=== PATIENT | female | born 1965 | race Caucasian/White ===

== ENCOUNTER 2017-06-06 22:53 | Emergency (ER) | payer SELFPAY ==
--- NOTE | 2017-06-06 23:33 | ER Document Report ---
ED General - General Chief Complaint: Leg Pain Stated Complaint: LEFT LEG PAIN Time Seen by Provider: 06/06/17 23:31 Notes: The patient is a 52-year-old female, past medical history chronic left leg sciatica, asthma, presents with 2 months of intermittent tingling and pain down the back of her left leg. She has had the symptoms over the past 15 years. She took ibuprofen without much relief her symptoms earlier today and said the pain was worsening over the past 3 days. She denies change in bowel or bladder , injury, numbness, difficulty walking, fevers, rash or saddle anesthesia. TRAVEL OUTSIDE OF THE [place] IN LAST 30 DAYS: No - Related Data Allergies/Adverse Reactions: amoxicillin [Amoxicillin] Adverse Reaction (Intermediate, Verified 12/21/11 09: 55) Nausea erythromycin base [Erythromycin Base] Adverse Reaction (Intermediate, Verified 12/21/11 09:55) Nausea Penicillins Adverse Reaction (Intermediate, Verified 12/21/11 09:55) Nausea Past Medical History - General Information source: Patient - Social History Smoking Status: Unknown if Ever Smoked Family History: Reviewed & Not Pertinent Pulmonary Medical History: Reports: Hx Asthma Past Surgical History: Reports: Hx Cholecystectomy, Hx Tonsillectomy - Immunizations Hx Diphtheria, Pertussis, Tetanus Vaccination: Yes Review of Systems - Review of Systems Notes: REVIEW OF SYSTEMS: CONSTITUTIONAL: -fevers, -chills EENT: -eye pain, -difficulty swallowing, -nasal congestion CARDIOVASCULAR:-chest pain, -syncope. RESPIRATORY: -cough, -SOB GASTROINTESTINAL: -abdominal pain, -nausea, -vomiting, -diarrhea GENITOURINARY: -dysuria, -hematuria MUSCULOSKELETAL: -back pain, -neck pain SKIN: -rash or skin lesions. HEMATOLOGIC: -easy bruising or bleeding. LYMPHATIC: -swollen, enlarged glands. NEUROLOGICAL: -altered mental status or loss of consciousness, -headache, + tingling/pain down left leg PSYCHIATRIC: -anxiety, -depression. ALL OTHER SYSTEMS REVIEWED AND NEGATIVE. Physical Exam - Vital signs Vitals: Temp Pulse Resp BP Pulse Ox 98 F 95 16 152/90 H 97 06/06/17 23:26 06/06/17 23:26 06/06/17 23:26 06/06/17 23:26 06/06/17 23:26 - Notes Notes: PHYSICAL EXAMINATION: GENERAL: Well-appearing, well-nourished and in no acute distress. HEAD: Atraumatic, normocephalic. EYES: Pupils equal round and reactive to light, extraocular movements intact, sclera anicteric, conjunctiva are normal. ENT: nares patent, oropharynx clear without exudates. Moist mucous membranes. NECK: Normal range of motion, supple without lymphadenopathy LUNGS: Breath sounds clear to auscultation bilaterally and equal. No wheezes rales or rhonchi. HEART: Regular rate and rhythm without murmurs ABDOMEN: Soft, nontender, normoactive bowel sounds. No guarding, no rebound. No masses appreciated. EXTREMITIES: Normal range of motion, no pitting or edema. No cyanosis. Strong distal pulses. BACK: No midline tenderness. NEUROLOGICAL: Cranial nerves grossly intact. Normal speech, normal gait. Normal sensory and motor exams. PSYCH: Normal mood, normal affect. SKIN: Warm, Dry, normal turgor, no rashes or lesions noted. Course - Re-evaluation Re-evalutation: Patient symptoms are ongoing for the past 15 years, worsening over the past 2 months. She has no red flag signs for low back pain and her symptoms are consistent with sciatica. Provided her with a shot of Decadron and instructions to continue anti-inflammatories with follow-up at pain management. She is strong distal pulses and her symptoms do not appear to be consistent with DVT or PVD/PAD at this time. - Vital Signs Vital signs: Temp Pulse Resp BP Pulse Ox 98 F 95 16 152/90 H 97 06/06/17 23:26 06/06/17 23:26 06/06/17 23:26 06/06/17 23:26 06/06/17 23:26 Discharge - Discharge Clinical Impression: Sciatica Qualifiers: Laterality: left Qualified Code(s): M54.32 - Sciatica, left side Condition: Stable Disposition: HOME, SELF-CARE Additional Instructions: Sciatica Your symptoms suggest "sciatica." The pain of sciatica typically radiates down the leg. Numbness in the foot or calf may also occur. Sciatica is caused by irritation of the sciatic nerve or its branches. The irritation can be due to a herniated disk in the spine, swelling and inflammation in the muscles surrounding the sciatic nerve, or direct injury of the nerve itself. Most cases of sciatica will resolve with medical treatment. Bed rest is usually recommended initially. Surgery is only necessary when the condition will not improve with rest and antiinflammatory medication. Muscle relaxers are often given if muscle soreness is present. Re-examination is necessary if you develop increasing numbness, localized weakness in the foot or ankle, or if the pain does not respond to rest. Forms: Elevated Blood Pressure Referrals: [facility] [Provider Group] - Follow up as needed
[2017-06-06] MEDS ORDERED: DEXAMETHASONE SOD PHOS INJ 10 MG/1 ML VIAL IM ONE (23:38)
[2017-06-07 01:09] VITALS: BP 123/71
== END 2017-06-07 01:08 | disposition home or self-care (01) ==
LOC: ER 22:53
DX: M54.32 Sciatica, left side (principal); M79.605 Pain in left leg; G89.29 Other chronic pain; R20.0 Anesthesia of skin
CPT/HCPCS: 99283; 96372; J1100

== ENCOUNTER 2017-09-13 15:28 | Emergency (ER) | payer SELFPAY ==
[2017-09-13] MEDS ORDERED: PREDNISONE 20 MG TABLET PO ONE (16:11)
[2017-09-13] MEDS ORDERED: IPRATROPIUM/ALBUTEROL 0.5-2.5 MG/3 ML AMPUL NEB ONE (16:11)
--- NOTE | 2017-09-13 16:11 | ER Document Report ---
ED Medical Screen (RME) - General Chief Complaint: Breathing Difficulty Stated Complaint: DIFFICULTY BREATHING Time Seen by Provider: 09/13/17 16:10 Notes: pt with sob/cough for one week. has bilat wheezes on exam. TRAVEL OUTSIDE OF THE [place] IN LAST 30 DAYS: No - Related Data Allergies/Adverse Reactions: amoxicillin [Amoxicillin] Adverse Reaction (Intermediate, Verified 12/21/11 09: 55) Nausea erythromycin base [Erythromycin Base] Adverse Reaction (Intermediate, Verified 12/21/11 09:55) Nausea Penicillins Adverse Reaction (Intermediate, Verified 12/21/11 09:55) Nausea Past Medical History Pulmonary Medical History: Reports: Hx Asthma Renal/ Medical History: Denies: Hx Peritoneal Dialysis Past Surgical History: Reports: Hx Cholecystectomy, Hx Tonsillectomy - Immunizations Hx Diphtheria, Pertussis, Tetanus Vaccination: Yes Physical Exam - Vital signs Vitals: Temp Pulse Resp BP Pulse Ox 98.5 F 85 28 H 146/75 H 92 09/13/17 15:45 09/13/17 15:45 09/13/17 15:45 09/13/17 15:45 09/13/17 15:45 Course - Vital Signs Vital signs: Temp Pulse Resp BP Pulse Ox 98.5 F 85 28 H 146/75 H 92 09/13/17 15:45 09/13/17 15:45 09/13/17 15:45 09/13/17 15:45 09/13/17 15:45
[2017-09-13 16:48] LABS: ABSOLUTE EOSINOPHILS # (AUTO) 0.2 10^3/uL (0.0-0.6); ABSOLUTE LYMPHOCYTES (AUTO) 2.6 10^3/uL (0.5-4.7); ABSOLUTE MONOCYTES (AUTO) 0.5 10^3/uL (0.1-1.4); ABSOLUTE NEUT (AUTO) 7.1 10^3/uL (1.7-8.2); BASOPHILS % (AUTO) 0.2 % (0-2); EOSINOPHILS % (AUTO) 1.6 % (0-6); HEMATOCRIT 38.5 % (36.0-47.0); HEMOGLOBIN 12.8 g/dL (12.0-15.5); LYMPHOCYTES % (AUTO) 25.1 % (13-45); MEAN CORPUSCULAR HEMOGLOBIN 28.8 pg (27.0-33.4); MEAN CORPUSCULAR HGB CONC 33.3 g/dL (32.0-36.0); MEAN CORPUSCULAR VOLUME 87 fl (80-97); PLATELET COUNT 267 10^3/uL (150-450); RED BLOOD COUNT 4.45 10^6/uL (3.72-5.28); RED CELL DISTRIBUTION WIDTH 13.5 % (11.5-14.0); SEGMENTED NEUTROPHILS % (AUTO) 68.1 % (42-78); TOTAL CELLS COUNTED % (AUTO) 100 %; WHITE BLOOD COUNT 10.4 10^3/uL (4.0-10.5)
--- NOTE | 2017-09-13 16:55 | RADIOLOGY REPORT (SQ) ---
EXAM DESCRIPTION: CHEST PA/LAT COMPLETED DATE/TIME: 09/13/2017 4:40 pm REASON FOR STUDY: cough COMPARISON: 12/21/2011 TWO-VIEW CHEST EXAM PARAMETERS: NUMBER OF VIEWS: two views TECHNIQUE: Digital Frontal and Lateral radiographic views of the chest acquired. RADIATION DOSE: NA LIMITATIONS: none FINDINGS: LUNGS AND PLEURA: There is dense consolidation in the right middle lobe with blurring the right heart border from right middle lobe pneumonia. This should be followed to radiographic clearin g. Left lung clear. No pleural effusions. No pneumothorax. MEDIASTINUM AND HILAR STRUCTURES: No masses or contour abnormalities. HEART AND VASCULAR STRUCTURES: Heart normal size. No evidence for failure. BONES: No acute findings. HARDWARE: None in the chest. OTHER: No other significant finding. IMPRESSION: Right middle lobe pneumonia TECHNICAL DOCUMENTATION: JOB ID: [id number] [employer]- All Rights Reserved Reading location - IP/workstation name: [email or web address]
[2017-09-13 17:05] LABS: ALANINE AMINOTRANSFERASE 32 U/L (9-52); ALBUMIN 3.7 g/dL (3.5-5.0); ALKALINE PHOSPHATASE 68 U/L (38-126); ANION GAP 9 (5-19); ASPARTATE AMINO TRANSFERASE 19 U/L (14-36); BILIRUBIN,DIRECT 0.2 mg/dL (0.0-0.4); BILIRUBIN,TOTAL 0.7 mg/dL (0.2-1.3); BLOOD UREA NITROGEN 12 mg/dL (7-20); CARBON DIOXIDE 31 mmol/L (22-30); CHLORIDE 103 mmol/L (98-107); GLUCOSE 111 mg/dL (75-110); POTASSIUM 3.9 mmol/L (3.6-5.0); TOTAL PROTEIN 5.7 g/dL (6.3-8.2)
[2017-09-13] MEDS ORDERED: ALBUTEROL SULFATE 0.083% NEB 2.5 MG/3 ML AMPUL NEB ONE (17:45)
[2017-09-13] MEDS ORDERED: AZITHROMYCIN 250 MG TABLET PO ONE (17:46)
[2017-09-13] MEDS ORDERED: ALBUTEROL SULFATE HFA (90 MCG/PUFF) 8 GM MDI (1 MDI/ER DISP) IH PRN (17:47)
--- NOTE | 2017-09-13 17:51 | ER Document Report ---
ED Respiratory Problem - General Chief Complaint: Breathing Difficulty Stated Complaint: DIFFICULTY BREATHING Time Seen by Provider: 09/13/17 16:10 Mode of Arrival: Ambulatory Information source: Patient Notes: 52-year-old obese asthmatic patient is complaining of right upper respiratory infection or allergy reaction to scallops at work since Monday a week ago. She got over the fever and thought she was getting better until she developed increased wheezing and shortness of breath with exertion the past few days. sHe has an albuterol nebulizer. She was given 60 mg of prednisone and a DuoNeb and picked. pulse px 92% in PIT. TRAVEL OUTSIDE OF THE [place] IN LAST 30 DAYS: No - Related Data Allergies/Adverse Reactions: amoxicillin [Amoxicillin] Adverse Reaction (Intermediate, Verified 09/13/17 17: 29) Nausea erythromycin base [Erythromycin Base] Adverse Reaction (Intermediate, Verified 09/13/17 17:29) Nausea Penicillins Adverse Reaction (Intermediate, Verified 09/13/17 17:29) Nausea Past Medical History - General Information source: Patient - Social History Smoking Status: Never Smoker Frequency of alcohol use: None Drug Abuse: Marijuana Family History: Reviewed & Not Pertinent Patient has suicidal ideation: No Patient has homicidal ideation: No Pulmonary Medical History: Reports: Hx Asthma Renal/ Medical History: Denies: Hx Peritoneal Dialysis Past Surgical History: Reports: Hx Cholecystectomy, Hx Tonsillectomy - Immunizations Hx Diphtheria, Pertussis, Tetanus Vaccination: Yes Review of Systems - Review of Systems Constitutional: See HPI EENT: No symptoms reported Cardiovascular: No symptoms reported Respiratory: See HPI Gastrointestinal: No symptoms reported Genitourinary: No symptoms reported Female Genitourinary: No symptoms reported Musculoskeletal: No symptoms reported Skin: No symptoms reported Hematologic/Lymphatic: No symptoms reported Neurological/Psychological: No symptoms reported Physical Exam - Vital signs Vitals: Temp Pulse Resp BP Pulse Ox 98.5 F 85 28 H 146/75 H 92 09/13/17 15:45 09/13/17 15:45 09/13/17 15:45 09/13/17 15:45 09/13/17 15:45 Interpretation: Normal - General General appearance: Appears well, Alert, Other - obese In distress: None - HEENT Head: Normocephalic, Atraumatic Eyes: Normal Conjunctiva: Normal Pupils: PERRL Tympanic membrane: Normal Mouth/Lips: Normal Mucous membranes: Normal Pharynx: Erythema Neck: Supple. No: Lymphadenopathy - Respiratory Respiratory status: No respiratory distress Chest status: Nontender Breath sounds: Wheezing - fine insp and coarse exp bilateral Chest palpation: Normal - Cardiovascular Rhythm: Regular Heart sounds: Normal auscultation Murmur: No - Abdominal Inspection: Normal Distension: No distension Bowel sounds: Normal Tenderness: Nontender. No: Tender Organomegaly: No organomegaly - Back Back: Normal, Nontender - Extremities General upper extremity: Normal inspection, Nontender, Normal color, Normal ROM , Normal temperature General lower extremity: Normal inspection, Nontender, Normal color, Normal ROM , Normal temperature, Normal weight bearing. No: Ronn's sign - Neurological Neuro grossly intact: Yes Cognition: Normal Orientation: AAOx4 Brice Coma Scale Eye Opening: Spontaneous Mary Coma Scale Verbal: Oriented Brice Coma Scale Motor: Obeys Commands Brice Coma Scale Total: 15 Speech: Normal Motor strength normal: LUE, RUE, LLE, RLE Sensory: Normal - Psychological Associated symptoms: Normal affect, Normal mood - Skin Skin Temperature: Warm Skin Moisture: Dry Skin Color: Normal Course - Re-evaluation Re-evalutation: 09/13/17 18:26 Patient feels a lot better than she has in a week as far as her breathing I will try a Xopenex 1.25 since there is residual expiratory wheezing bilateral. Her pulse ox is maintaining 96% while in bed. 09/13/17 19:03 Patient ambulating in the pulse ox is 94%. She was able to get to the bathroom. She is worried about everything she has to do tomorrow and I told her that she needs to rest for at least 3 days I will give her a work note and she is to return to the emergency room today if she gets increased shortness of breath or trouble breathing she does have more albuterol nebulizer to use at home but I will give another prescription and a dispense metered-dose inhaler. Also she will get prednisone for 1 weeks and the remaining a azithromycin prescription. 09/13/17 19:10 - Vital Signs Vital signs: Temp Pulse Resp BP Pulse Ox 98.5 F 85 28 H 146/75 H 96 09/13/17 15:45 09/13/17 15:45 09/13/17 15:45 09/13/17 15:45 02/28/18 17:48 - Laboratory Result Diagrams: 09/13/17 16:25 09/13/17 16:25 Laboratory results interpreted by me: 09/13/17 16:25 Carbon Dioxide 31 H Glucose 111 H Total Protein 5.7 L Discharge - Discharge Clinical Impression: Wheezing RLL pneumonia Qualifiers: Pneumonia type: due to unspecified organism Qualified Code(s): J18.1 - Lobar pneumonia, unspecified organism Condition: Good Disposition: HOME, SELF-CARE Instructions: Pneumonia ([facility]), Azithromycin ([facility]), Steroid Medication, Inhaled Bronchodilators ([facility]) Additional Instructions: plenty of fluids albuterol nebulizer every 3-4 hours as need return to the ER if worsening symptoms take the prednisone and antibiotics until gone see your doctor for follow up Prescriptions: Albuterol Sulfate [Ventolin 0.083% Neb 2.5 mg/3 mL Ampul] 2.5 mg NEB Q3HP PRN # 25 vial PRN Reason: Azithromycin [Zithromax] 250 mg PO DAILY #4 tablet Prednisone [Deltasone 10 mg Tablet] 10 mg PO ASDIR PRN #21 tablet PRN Reason: Forms: Return to Work
[2017-09-13] MEDS ORDERED: LEVALBUTEROL HCL NEB 1.25 MG/3 ML AMPUL NEB ONE (18:25)
[2017-09-13 19:18] VITALS: BP 148/63
== END 2017-09-13 19:24 | disposition home or self-care (01) ==
LOC: ER 15:28
DX: J18.1 Lobar pneumonia, unspecified organism (principal); R06.2 Wheezing; R06.02 Shortness of breath; Z79.899 Other long term (current) drug therapy
CPT/HCPCS: 94640 ×2; 99285; 36415; 85025; 80053; 71046; J7512; J3490 ×2; J7620

== ENCOUNTER 2018-01-14 00:35 | Emergency (ER) | payer SELFPAY ==
--- NOTE | 2018-01-14 01:39 | ER Document Report ---
ED Medical Screen (RME) - General Chief Complaint: Shortness Of Breath Stated Complaint: DIFFICULTY BREATHING Time Seen by Provider: 01/14/18 01:34 Mode of Arrival: Ambulatory Information source: Patient TRAVEL OUTSIDE OF THE [place] IN LAST 30 DAYS: No - HPI Patient complains to provider of: clementina Notes: 01/14/18 01:38 Patient is here with complaints of feeling short of breath. Patient has a history of asthma. She states that she has felt short of breath for the last several weeks. Her last few days she has felt like she has been running fevers. She has had a cough. She has had a couple episodes of posttussive emesis. She denies any recent long trips or surgeries, she is not on control pills, she is a non-smoker, she denies history of DVT or PE. She denies cancer. She denies high blood pressure, high cholesterol, diabetes, CAD. Physical exam: No distress. Nontoxic-appearing. Few scattered expiratory wheezes and fine crackles. An initial examination was made on the patient as part of the triage process, and it was determined a more comprehensive evaluation was necessary. Initial labs were ordered and patient was transferred to another provider in the ED who assumed care and finished evaluation and plan. - Related Data Allergies/Adverse Reactions: amoxicillin [Amoxicillin] Adverse Reaction (Intermediate, Verified 09/13/17 17: 29) Nausea erythromycin base [Erythromycin Base] Adverse Reaction (Intermediate, Verified 09/13/17 17:29) Nausea Penicillins Adverse Reaction (Intermediate, Verified 09/13/17 17:29) Nausea Past Medical History Pulmonary Medical History: Reports: Hx Asthma Renal/ Medical History: Denies: Hx Peritoneal Dialysis Past Surgical History: Reports: Hx Cholecystectomy, Hx Tonsillectomy - Immunizations Hx Diphtheria, Pertussis, Tetanus Vaccination: Yes Physical Exam - Vital signs Vitals: Temp Pulse Resp BP Pulse Ox 99.5 F 88 24 H 140/66 H 95 01/14/18 00:42 01/14/18 00:42 01/14/18 00:42 01/14/18 00:42 01/14/18 00:42 Course - Vital Signs Vital signs: Temp Pulse Resp BP Pulse Ox 99.5 F 88 24 H 140/66 H 95 01/14/18 00:42 01/14/18 00:42 01/14/18 00:42 01/14/18 00:42 01/14/18 00:42
[2018-01-14 03:02] LABS: ABSOLUTE EOSINOPHILS # (AUTO) 0.1 10^3/uL (0.0-0.6); ABSOLUTE LYMPHOCYTES (AUTO) 2.8 10^3/uL (0.5-4.7); ABSOLUTE MONOCYTES (AUTO) 0.9 10^3/uL (0.1-1.4); ABSOLUTE NEUT (AUTO) 3.1 10^3/uL (1.7-8.2); BASOPHILS % (AUTO) 0.5 % (0-2); EOSINOPHILS % (AUTO) 1.7 % (0-6); HEMATOCRIT 39.3 % (36.0-47.0); HEMOGLOBIN 13.1 g/dL (12.0-15.5); LYMPHOCYTES % (AUTO) 40.2 % (13-45); MEAN CORPUSCULAR HEMOGLOBIN 28.6 pg (27.0-33.4); MEAN CORPUSCULAR HGB CONC 33.4 g/dL (32.0-36.0); MEAN CORPUSCULAR VOLUME 86 fl (80-97); MONOCYTES % (AUTO) 13.5 % (3-13); PLATELET COUNT 218 10^3/uL (150-450); RED CELL DISTRIBUTION WIDTH 14.3 % (11.5-14.0); SEGMENTED NEUTROPHILS % (AUTO) 44.1 % (42-78); TOTAL CELLS COUNTED % (AUTO) 100 %
--- NOTE | 2018-01-14 03:16 | RADIOLOGY REPORT (SQ) ---
EXAM DESCRIPTION: XR CHEST 2 VIEWS COMPLETED DATE/TME: 01/14/2018 01:37 CLINICAL HISTORY: sob COMPARISON: 09/13/2017 FINDINGS: Frontal and lateral views of the chest. Cardiomegaly. Patchy right basilar opacity. No pneumothorax or pleural effusion. Generative change of the spine. No acute osseous abnormality. Upper abdominal soft tissues are unremarkable. IMPRESSION: 1. Minimal right basilar opacity may be related to atelectasis or pneumonia.
[2018-01-14 03:21] LABS: ALANINE AMINOTRANSFERASE 26 U/L (9-52); ALBUMIN 3.8 g/dL (3.5-5.0); ALKALINE PHOSPHATASE 60 U/L (38-126); ANION GAP 12 (5-19); ASPARTATE AMINO TRANSFERASE 20 U/L (14-36); BILIRUBIN,DIRECT 0.3 mg/dL (0.0-0.4); BILIRUBIN,TOTAL 0.3 mg/dL (0.2-1.3); BLOOD UREA NITROGEN 17 mg/dL (7-20); CALCIUM 9.3 mg/dL (8.4-10.2); CARBON DIOXIDE 27 mmol/L (22-30); CHLORIDE 105 mmol/L (98-107); GLUCOSE 122 mg/dL (75-110); POTASSIUM 3.6 mmol/L (3.6-5.0); SODIUM 144.4 mmol/L (137-145); TOTAL PROTEIN 6.2 g/dL (6.3-8.2)
[2018-01-14 03:32] LABS: NT PRO BNP 105 pg/mL (5-900)
[2018-01-14 03:36] LABS: TROPONIN I < 0.012 ng/mL
[2018-01-14] MEDS ORDERED: IPRATROPIUM/ALBUTEROL 0.5-2.5 MG/3 ML AMPUL NEB ONE ×2 (03:48→05:23)
[2018-01-14] MEDS ORDERED: AZITHROMYCIN 250 MG TABLET PO ONE (05:23)
[2018-01-14] MEDS ORDERED: DEXAMETHASONE SOD PHOS INJ 10 MG/1 ML VIAL IM ONE (05:23)
--- NOTE | 2018-01-14 05:26 | ER Document Report ---
ED General - General Chief Complaint: Shortness Of Breath Stated Complaint: DIFFICULTY BREATHING Time Seen by Provider: 01/14/18 01:34 Mode of Arrival: Ambulatory Information source: Patient Notes: Patient is a 52-year-old female who presents with chief complaint of productive cough, shortness of breath and fever for the last 3-4 days. Patient reports history of pneumonia. Patient reports that she is concerned she may be developing a pneumonia at this time. Patient reports that she does not have a primary care doctor nor does she take any daily medications. TRAVEL OUTSIDE OF THE [place] IN LAST 30 DAYS: No - Related Data Allergies/Adverse Reactions: amoxicillin [Amoxicillin] Adverse Reaction (Intermediate, Verified 01/14/18 04: 15) Nausea erythromycin base [Erythromycin Base] Adverse Reaction (Intermediate, Verified 01/14/18 04:15) Nausea Penicillins Adverse Reaction (Intermediate, Verified 01/14/18 04:15) Nausea Past Medical History - General Information source: Patient - Social History Smoking Status: Never Smoker Chew tobacco use (# tins/day): No Frequency of alcohol use: None Drug Abuse: None Family History: Reviewed & Not Pertinent Patient has suicidal ideation: No Patient has homicidal ideation: No Pulmonary Medical History: Reports: Hx Asthma Renal/ Medical History: Denies: Hx Peritoneal Dialysis Past Surgical History: Reports: Hx Cholecystectomy, Hx Tonsillectomy - Immunizations Hx Diphtheria, Pertussis, Tetanus Vaccination: Yes Review of Systems - Review of Systems Constitutional: See HPI EENT: No symptoms reported Cardiovascular: No symptoms reported Respiratory: See HPI Gastrointestinal: No symptoms reported Genitourinary: No symptoms reported Female Genitourinary: No symptoms reported Musculoskeletal: No symptoms reported Skin: No symptoms reported Hematologic/Lymphatic: No symptoms reported Neurological/Psychological: No symptoms reported Physical Exam - Vital signs Vitals: Temp Pulse Resp BP Pulse Ox 99.5 F 88 24 H 140/66 H 95 01/14/18 00:42 01/14/18 00:42 01/14/18 00:42 01/14/18 00:42 01/14/18 00:42 - Notes Notes: PHYSICAL EXAMINATION: GENERAL: Well-appearing, well-nourished and in no acute distress. HEAD: Atraumatic, normocephalic. EYES: Pupils equal round and reactive to light, extraocular movements intact, conjunctiva are normal. ENT: Nares patent, oropharynx clear without exudates. Moist mucous membranes. NECK: Normal range of motion, supple without lymphadenopathy LUNGS: Lung sounds with expiratory wheezing bilaterally. No use of accessory muscle use. Patient with mild shortness of breath on exertion. HEART: Regular rate and rhythm without murmurs ABDOMEN: Soft, nontender, nondistended abdomen. No guarding, no rebound. No masses appreciated. Female : deferred Musculoskeletal: Normal range of motion, no pitting or edema. No cyanosis. NEUROLOGICAL: Cranial nerves grossly intact. Normal speech, normal gait. Normal sensory, motor exams PSYCH: Normal mood, normal affect. SKIN: Warm, Dry, normal turgor, no rashes or lesions noted. Course - Re-evaluation Re-evalutation: 52-year-old female patient presenting with chief complaint of productive cough, fever and shortness of breath. Initial workup was done by triage provider calm , at the time of my assessment patient has already been treated with multiple breathing treatments. Differential diagnosis includes bronchitis versus pneumonia. During my assessment patient with continued mild expiratory wheezing. Laboratory workup was otherwise normal with a unremarkable CBC, comprehensive metabolic panel, negative troponin and normal BNP. Chest x-ray reveals right basilar opacity which may indicate pneumonia. Due to patient's initial presentation and lack of primary care for follow-up, I will start her on antibiotics. Patient does not meet criteria to be admitted. Patient overall looks well, vital signs are stable. Patient's lung sounds have improved significantly with breathing treatments. Wishes to be discharged at this time and I feel she is stable for discharge. Patient agrees to return to the hospital if she develops worsening shortness of breath, fever unrelieved by acetaminophen or any other symptoms that is concerning to her. Patient and son are both at bedside and are both agreeable to this plan. - Vital Signs Vital signs: Temp Pulse Resp BP Pulse Ox 99.5 F 78 36 H 121/74 96 01/14/18 00:42 01/14/18 03:26 01/14/18 06:01 01/14/18 06:00 01/14/18 06:01 - Laboratory Result Diagrams: 01/14/18 02:45 01/14/18 02:45 Laboratory results interpreted by me: 01/14/18 01/14/18 02:45 02:45 RDW 14.3 H Monocytes % 13.5 H Glucose 122 H Total Protein 6.2 L Discharge - Discharge Clinical Impression: Pneumonia Qualifiers: Pneumonia type: due to unspecified organism Laterality: unspecified laterality Lung location: unspecified part of lung Qualified Code(s): J18.9 - Pneumonia, unspecified organism Condition: Stable Disposition: HOME, SELF-CARE Additional Instructions: Pneumonia Your examination indicates that you have pneumonia. This is an infection of the lung tissue, usually caused by bacteria or a virus. Symptoms include cough, fever, shaking chills, chest pain, shortness of breath, and coughing up bloody sputum. Treatment for bacterial pneumonia includes rest, antibiotics for 10 to 14 days, increasing your clear liquid intake, a cool mist humidifier at your bedside, and fever medication. Often, a repeat chest X-ray is performed in a few weeks--even if you feel better--to ascertain whether the infection has completely resolved and no underlying lung problem is present. You should call the physician if you develop persistent vomiting, high fever that does not respond to fever medication, increasing shortness of breath , confusion, or lethargy. Also, failure to improve within two to three days is an indication for re-examination. Please take medications as prescribed. Continue to do albuterol nebulizers at home every 4 hours for the next 24 hours then use them as needed. Take Tylenol or Motrin for fever or pain. Please return to the emergency department if you develop worsening in your symptoms such as shortness of breath, difficulty breathing, chest pain, fever. Prescriptions: Azithromycin [Zithromax 250 mg Tablet] 250 mg PO ASDIR PRN #4 tablet PRN Reason:
[2018-01-14] MEDS ORDERED: ALBUTEROL SULFATE HFA (90 MCG/PUFF) 8 GM MDI (1 MDI/ER DISP) IH SCH (06:00)
[2018-01-14 06:16] VITALS: BP 121/74
--- NOTE | 2018-01-14 19:08 | EKG REPORT ---
SEVERITY:- ABNORMAL ECG - SINUS RHYTHM LEFT ANTERIOR FASCICULAR BLOCK LEFT VENTRICULAR HYPERTROPHY : Confirmed by: Ofelia Gong MD 14-Jan-2018 19:07:49
== END 2018-01-14 06:47 | disposition home or self-care (01) ==
LOC: ER 00:35
DX: J18.9 Pneumonia, unspecified organism (principal); R05 Cough; R06.02 Shortness of breath; R50.9 Fever, unspecified; J45.909 Unspecified asthma, uncomplicated
CPT/HCPCS: 93005; 94640 ×2; 99285; 96372; 36415; 85025; 80053; 84484; 83880; 71046; 93010; J1100; J3490; J7620